=== PATIENT | male | born 1965 | race Caucasian/White ===

== ENCOUNTER 2019-01-19 06:56 | Day surgery (SDC) | payer BC ==
[~2019-01-19] VITALS: Ht 172.7 cm; Wt 83.9 kg
[2019-01-19 08:00] VITALS: Ht 172.7 cm; Wt 83.9 kg
[2019-01-19 08:08] VITALS: BP 126/72; PULSE 76; RESP 13
[2019-01-19] MEDS ORDERED: meclizine (08:28)
[2019-01-19] MEDS ORDERED: FENTAnyl 50 MCG/ML VIAL ONE (09:06)
[2019-01-19] MEDS ORDERED: MIDAZOLAM 1 MG/ML 2 ML INJ ONE ×2 (09:06)
[2019-01-19 09:16] VITALS: BP 112/63; RESP 20
== END 2019-01-19 12:48 | disposition home or self-care (01) ==
LOC: GIL 06:56
PROVIDERS: ATTEND Internal Medicine Gastroenterology
DX: Z12.11 Encounter for screening for malignant neoplasm of colon (principal); K64.4 Residual hemorrhoidal skin tags; K57.30 Diverticulosis of large intestine without perforation or abscess without bleeding
CPT/HCPCS: 45378; J2250; J3010